=== PATIENT | female | born 1945 | race Caucasian/White ===

== ENCOUNTER → 2021-10-13 | Day surgery (SDC) | payer OTHER ==
[~2021-10-13] VITALS: Ht 154.9 cm; Wt 59.0 kg
[~2021-10-13] MED LIST: B COMPLEX1 EACH PO; BAYER ASPIRIN PO; BIOTIN10000 MCG PO; GINKGO BILOBA60 M1 PO; LEVOTHYROXINE88 MCG PO; LISINOPRIL5 MG PO; SERTRALINE HCL100 MG PO; VITAMIN B-121000 MC1 PO; ZETIA10 MG PO
[2021-10-13 09:06] LABS: HCT 41.6 % (37.0-47.0); MCH 28.7 pg (25.0-31.0); MCHC 31.3 g/dL (32.0-36.0); MCV 91.8 fL (78.0-100.0); MPV 9.6 fL (6.0-9.5); RBC 4.53 M/uL (4.20-5.40); WBC 7.1 K/uL (4.0-10.5)
[2021-10-13 09:49] LABS: ALBUMIN 4.1 g/dL (3.4-5.0); BILIRUBIN - TOTAL 0.5 mg/dL (0.2-1.0); BUN/CREAT RATIO (CALC) 16.9 RATIO; CREATININE 0.65 mg/dL (0.51-0.95); GLOBULIN (CALCULATION) 4.1 g/dL; POTASSIUM 3.7 mmol/L (3.5-5.1); TOTAL PROTEIN 8.2 g/dL (6.4-8.2)
== END | disposition home or self-care (01) ==
LOC: FAS 08:31
PROVIDERS: Surgery
DX: Z12.11 Encounter for screening for malignant neoplasm of colon (principal); Z86.010 Personal history of colon polyps; I10 Essential (primary) hypertension; E78.5 Hyperlipidemia, unspecified; F41.9 Anxiety disorder, unspecified; E03.9 Hypothyroidism, unspecified; J44.9 Chronic obstructive pulmonary disease, unspecified; Z79.82 Long term (current) use of aspirin; Z79.899 Other long term (current) drug therapy
CPT/HCPCS: 36415; 80053; J2704; J7120